=== PATIENT | male | born 1960 | race Caucasian/White ===

== ENCOUNTER 2020-07-21 07:24 | Observation (INO) ==
[2020-07-21] MEDS ORDERED: CeFAZolin Syr 2,000MG/20 ML 2,000 MG/20 ML SYRINGE IVPB ONE (08:18)
[2020-07-21] MEDS ORDERED: Ringers Solution, Lactated 1,000 ML IVC SCH (08:30)
[2020-07-21] MEDS ORDERED: Lidocaine HCL 4 ML Topical Solution (Laryng-O-Jet Kit Sterile Pak) TP ONE (09:04)
[2020-07-21] MEDS ORDERED: Dexamethasone 4 MG/ML VIAL ONE (09:10)
[2020-07-21] MEDS ORDERED: *HR* HYDROMORPHONE 2 MG/ML VIAL ONE (09:10)
[2020-07-21] MEDS ORDERED: *HR* Rocuronium Bromide 50 MG/5 ML VIAL ONE (09:10)
[2020-07-21] MEDS ORDERED: Ondansetron 4 MG/2 ML VIAL ONE (09:10)
[2020-07-21] MEDS ORDERED: *HR* FentaNYL (PF) 100 MCG/2 ML VIAL ONE (09:10)
[2020-07-21] MEDS ORDERED: Lidocaine -MPF 2% 2 ML VIAL ONE (09:10)
[2020-07-21] MEDS ORDERED: *HR* Succinylcholine 200 MG/10 ML VIAL IVP ONE (09:10)
[2020-07-21] MEDS ORDERED: Lidocaine -MPF 4% 5 ML AMPUL ONE (09:11)
[2020-07-21] MEDS ORDERED: *HR* PHENYLEPHRINE 1,000 MCG/10 ML SYRINGE IVP ONE (10:48)
[2020-07-21] MEDS ORDERED: Ketorolac 30 MG/ML VIAL ONE (11:17)
[2020-07-21] MEDS: *HR* HYDROmorphone (PF) 1 MG/ML SYRINGE IVP PRN ×2 (12:27→12:39)
[2020-07-21] MEDS ORDERED: Ondansetron 4 MG/2 ML VIAL IVP PRN (13:46)
[2020-07-21] MEDS ORDERED: 0.9 % Sodium Chloride 1,000 ML IVC SCH (13:46)
[2020-07-21 16:19] VITALS: BP 106/62
== END 2020-07-21 19:29 | disposition home or self-care (01) ==
LOC: 3ANU 07:24 → SAMDAY 07:24 → 3ANU 13:41
PROVIDERS: ADMIT Surgery; ATTEND Surgery

== ENCOUNTER 2020-11-13 16:44 | Inpatient (IN) ==
[2020-11-13] MEDS ORDERED: Ondansetron 4 MG/2 ML VIAL IVP ONE (16:50)
[2020-11-13] MEDS ORDERED: 0.9 % Sodium Chloride 1,000 ML IVC ONE ×2 (16:50→20:06)
[2020-11-13] MEDS ORDERED: Ipratropium/Albuterol Neb 3 ML IH ONE (16:51)
[2020-11-13] MEDS ORDERED: methylPREDNISolone 125 MG/2 ML VIAL IVP ONE (16:51)
[2020-11-13 17:50] LABS: Hematocrit 41.1 % (37.5-50.1); Hemoglobin 14.3 g/dL (12.9-16.9); Immature Granulocytes % 0.3 % (0-4); Immature Platelets 5.4 % (1.1-6.1); Lymphocytes # 0.5 K/mcL (0.6-4.6); Lymphocytes % 5.9 %; Mean Corpuscular HGB Conc 34.8 g/dL (31.6-35.5); Mean Corpuscular Hemoglobin 28.5 pg (28.0-33.3); Mean Corpuscular Volume 81.9 fL (83.0-100.0); Mean Platelet Volume 10.9 fL (9.4-12.4); Monocytes # 0.6 K/mcL (0.0-1.3); Monocytes % 7.3 %; Neutrophils # 6.8 K/mcL (1.6-8.9); Platelet Count 110 K/mcL (140-400); Red Blood Count 5.02 M/mcL (4.19-5.50); Red Cell Distribution Width 16.3 % (11.5-14.5); Segmented Neutrophils % 86.5 %; White Blood Count 7.8 K/mcL (4.3-11.1)
[2020-11-13 17:52] LABS: Bacteria,Urine Few per hpf (None-Few); Bilirubin,Urine Negative (Negative); Blood,Urine Trace (Negative); Clarity,Urine Turbid (Clear); Color,Urine Yellow (Yellow); Glucose,Urine (UA) Normal (Normal); Hyaline Casts,Urine Moderate per lpf (None Seen); Ketones,Urine Negative (Negative); Leukocyte Esterase,Urine Negative (Negative); Mucus,Urine Few per lpf (None-Few); Nitrite,Urine Negative (Negative); PH,Urine 5.5 pH Units (5.0-8.0); Protein,Urine 30 mg/dL (Neg-Trace); RBC,Urine 0-3 per hpf (0-3); Specific Gravity,Urine 1.018 (1.010-1.025); Squamous Epithelial Cell,Urine Few per hpf (None-Few); WBC,Urine 15-30 per hpf (0-3)
[2020-11-13 17:54] LABS: INR 1.5; Prothrombin Time 16.9 Seconds (9.4-12.1)
[2020-11-13 17:57] LABS: Activated Partial Thrombo Time 34.1 Seconds (26.0-36.0)
[2020-11-13 18:02] LABS: Amphetamine Screen,Urine Negative ng/mL (Cutoff=1000); Barbiturate Screen,Urine Negative ng/mL (Cutoff=200); Benzodiazepines Screen,Urine Positive ng/mL (Cutoff=200); Cannabinoid Screen,Urine Negative ng/mL (Cutoff = 50); Cocaine Screen,Urine Negative ng/mL (Cutoff= 300); Opiate Screen,Urine Negative ng/mL (Cutoff=300); Phencyclidine Screen,Urine Negative ng/mL (Cutoff=25)
[2020-11-13] MEDS ORDERED: *HR* LORazepam 2 MG/ML VIAL IVP ONE ×2 (18:04→18:50)
[2020-11-13] MEDS ORDERED: Lactulose Oral Soln 20 GM/30 ML UDC PO ONE (18:06)
[2020-11-13 18:13] LABS: Alanine Aminotransferase 12 Units/L (7-52); Albumin 2.9 g/dL (3.5-5.7); Albumin/Globulin Ratio 0.7 (1.1-2.2); Alkaline Phosphatase 105 Units/L (34-104); Aspartate Amino Transferase 18 Units/L (13-39); BUN/Creatinine Ratio 13 (6-26); Bilirubin,Direct 1.5 mg/dL (0.0-0.2); Bilirubin,Total 2.5 mg/dL (0.3-1.0); Blood Urea Nitrogen 74 mg/dL (8-23); Calcium 8.7 mg/dL (8.6-10.3); Carbon Dioxide 23 mEq/L (23-29); Chloride 95 mEq/L (98-107); Globulin 3.9 g/dL (2.4-3.5); Glucose 97 mg/dL (70-105); Lipase 19 Units/L (11-82); Osmolality,Calculated 300 (280-300); Sodium 134 mEq/L (136-145); Total Protein 6.8 g/dL (6.4-8.9); Troponin I < 0.03 ng/mL (< 0.04); eGFR For African Americans 12 (> 60); eGFR For Non-African Americans 10 (> 60)
[2020-11-13 20:38] LABS: Ethanol < 10 mg/dL (Less than 10)
[2020-11-13] MEDS ORDERED: Naloxone 0.4 MG/ML INJ IVP PRN (21:32)
[2020-11-13] MEDS ORDERED: 0.9 % Sodium Chloride 1,000 ML IVC SCH (21:45)
[2020-11-13] MEDS ORDERED: *HR* LORazepam 2 MG/ML VIAL IVP PRN (22:18)
[2020-11-13] MEDS ORDERED: Albumin Human 5% 12.5 GM/250 ML IV.SOLN IVPB ONE (23:23)
[2020-11-13] MEDS ORDERED: Ipratropium/Albuterol Neb 3 ML IH PRN (23:38)
[2020-11-14 08:52] LABS: Immature Granulocytes % 0.4 % (0-4); Immature Platelets 6.1 % (1.1-6.1); Lymphocytes # 0.2 K/mcL (0.6-4.6); Lymphocytes % 2.2 %; Mean Corpuscular HGB Conc 34.2 g/dL (31.6-35.5); Mean Corpuscular Hemoglobin 28.6 pg (28.0-33.3); Mean Corpuscular Volume 83.5 fL (83.0-100.0); Monocytes # 0.5 K/mcL (0.0-1.3); Monocytes % 5.7 %; Neutrophils # 7.5 K/mcL (1.6-8.9); Red Blood Count 4.55 M/mcL (4.19-5.50); Red Cell Distribution Width 16.6 % (11.5-14.5); Segmented Neutrophils % 91.7 %; White Blood Count 8.2 K/mcL (4.3-11.1)
[2020-11-14 08:54] LABS: Platelet Count 86 K/mcL (140-400)
[2020-11-14] MEDS ORDERED: cefTRIAXone 1,000 MG in Water for inj. (sterile) 10 ML IVP SCH (09:00)
[2020-11-14 09:09] LABS: Albumin 2.9 g/dL (3.5-5.7); Albumin/Globulin Ratio 0.8 (1.1-2.2); Bilirubin,Total 2.4 mg/dL (0.3-1.0); Calcium 8.5 mg/dL (8.6-10.3); Globulin 3.7 g/dL (2.4-3.5); Magnesium 1.5 mg/dL (1.6-2.6); Phosphorous 7.1 mg/dL (2.7-4.5); Potassium 4.1 mEq/L (3.5-5.1); Total Protein 6.6 g/dL (6.4-8.9)
[2020-11-14] MEDS: cefTRIAXone 2,000 MG in Water for inj. (sterile) 10 ML IVP SCH (10:30)
[2020-11-14] MEDS: Lactulose Oral Soln 20 GM/30 ML UDC PO SCH ×3 (10:30→22:25)
[2020-11-14] MEDS: Albumin 25% 25gram/100mL 25 GM/100 ML IV.SOLN IVPB SCH ×2 (10:31→17:04)
[2020-11-14] MEDS ORDERED: Lactulose 200 GM, Sodium Chloride IRRigation 700 ML RC ONE (10:51)
[2020-11-14 11:00] LABS: Platelet Estimate Decreased (Normal)
[2020-11-14] MEDS: traZODone 50 MG TABLET PO SCH (22:24)
[2020-11-15] MEDS: Albumin 25% 25gram/100mL 25 GM/100 ML IV.SOLN IVPB SCH ×2 (03:39→16:06)
[2020-11-15 05:25] LABS: Hematocrit 34.2 % (37.5-50.1); Hemoglobin 11.9 g/dL (12.9-16.9); Immature Granulocytes % 0.4 % (0-4); Immature Platelets 3.4 % (1.1-6.1); Lymphocytes # 0.4 K/mcL (0.6-4.6); Lymphocytes % 6.6 %; Mean Corpuscular HGB Conc 34.8 g/dL (31.6-35.5); Mean Corpuscular Volume 83.4 fL (83.0-100.0); Mean Platelet Volume 10.9 fL (9.4-12.4); Monocytes # 0.5 K/mcL (0.0-1.3); Monocytes % 9.9 %; Neutrophils # 4.4 K/mcL (1.6-8.9); Red Cell Distribution Width 16.6 % (11.5-14.5); Segmented Neutrophils % 83.1 %; White Blood Count 5.3 K/mcL (4.3-11.1)
[2020-11-15 05:27] LABS: Platelet Count 89 K/mcL (140-400)
[2020-11-15 05:43] LABS: Calcium 8.4 mg/dL (8.6-10.3); Magnesium 1.6 mg/dL (1.6-2.6); Phosphorous 6.4 mg/dL (2.7-4.5); Potassium 3.9 mEq/L (3.5-5.1)
[2020-11-15] MEDS: Lactulose Oral Soln 20 GM/30 ML UDC PO SCH ×2 (08:10→21:36)
[2020-11-15] MEDS: Thiamine (B-1) 100 MG TABLET PO SCH (08:10)
[2020-11-15] MEDS: cefTRIAXone 2,000 MG in Water for inj. (sterile) 10 ML IVP SCH (08:13)
[2020-11-15] MEDS ORDERED: Folic Acid 1 MG TABLET PO SCH (10:30)
[2020-11-15] MEDS ORDERED: *HR* LORazepam 2 MG/ML VIAL IVP PRN ×2 (14:20)
[2020-11-15 14:29] LABS: Sodium, Urine 20.3 mEq/L
[2020-11-15 15:06] LABS: RBC,Peritoneal Fluid < 2000 RBC/mcL
[2020-11-15 15:29] LABS: Amylase,Peritoneal Fluid < 10 Units/L (No Ref Range); Glucose,Peritoneal Fluid 91 mg/dL (No Ref Range); LDH,Peritoneal Fluid 41 Units/L (No Ref Range); Total Protein,Peritoneal Fluid < 2.0 g/dL
[2020-11-15 16:45] LABS: Appearance of Peritoneal Fl CLEAR (Clear)
[2020-11-15] MEDS: *HR* Heparin 5,000 UNIT/ML VIAL SQ SCH (18:38)
[2020-11-15] MEDS: traZODone 50 MG TABLET PO SCH (21:36)
[2020-11-16] MEDS: Albumin 25% 25gram/100mL 25 GM/100 ML IV.SOLN IVPB SCH ×3 (00:04→15:53)
[2020-11-16] MEDS: *HR* Heparin 5,000 UNIT/ML VIAL SQ SCH ×2 (05:42→17:39)
[2020-11-16 09:33] LABS: Albumin 3.2 g/dL (3.5-5.7); Albumin/Globulin Ratio 1.1 (1.1-2.2); Bilirubin,Total 1.3 mg/dL (0.3-1.0); Calcium 8.5 mg/dL (8.6-10.3); Globulin 2.9 g/dL (2.4-3.5); Potassium 3.7 mEq/L (3.5-5.1); Total Protein 6.1 g/dL (6.4-8.9)
[2020-11-16] MEDS: Thiamine (B-1) 100 MG TABLET PO SCH (09:40)
[2020-11-16] MEDS: Folic Acid 1 MG TABLET PO SCH (09:41)
[2020-11-16] MEDS: Lactulose Oral Soln 20 GM/30 ML UDC PO SCH ×2 (09:41→20:26)
[2020-11-16] MEDS: cefTRIAXone 2,000 MG in Water for inj. (sterile) 10 ML IVP SCH (09:41)
[2020-11-16] MEDS: Multivit/Ca/Min/Fe/FA 1 TAB TABLET PO SCH (09:41)
[2020-11-16] MEDS: traZODone 50 MG TABLET PO SCH (20:26)
[2020-11-17] MEDS: Albumin 25% 25gram/100mL 25 GM/100 ML IV.SOLN IVPB SCH ×3 (00:06→12:38)
[2020-11-17] MEDS ORDERED: Melatonin 3 MG TABLET PO ONE (00:12)
[2020-11-17 04:27] LABS: Hematocrit 29.9 % (37.5-50.1); Hemoglobin 10.4 g/dL (12.9-16.9)
[2020-11-17 04:46] LABS: Calcium 8.7 mg/dL (8.6-10.3); Magnesium 1.6 mg/dL (1.6-2.6); Phosphorous 4.4 mg/dL (2.7-4.5); Potassium 3.1 mEq/L (3.5-5.1)
[2020-11-17] MEDS: *HR* Heparin 5,000 UNIT/ML VIAL SQ SCH ×2 (06:08→17:52)
[2020-11-17] MEDS: Multivit/Ca/Min/Fe/FA 1 TAB TABLET PO SCH (07:44)
[2020-11-17] MEDS: Thiamine (B-1) 100 MG TABLET PO SCH (07:44)
[2020-11-17] MEDS: cefTRIAXone 2,000 MG in Water for inj. (sterile) 10 ML IVP SCH (07:44)
[2020-11-17] MEDS: Folic Acid 1 MG TABLET PO SCH (07:45)
[2020-11-17] MEDS: Lactulose Oral Soln 20 GM/30 ML UDC PO SCH ×2 (07:45→20:15)
[2020-11-17] MEDS: traZODone 50 MG TABLET PO SCH (20:15)
[2020-11-18] MEDS: *HR* Heparin 5,000 UNIT/ML VIAL SQ SCH (05:26)
[2020-11-18 05:38] LABS: Basophils % 0.3 %; Lymphocytes % 17.4 %
[2020-11-18 05:39] LABS: INR 1.4; Prothrombin Time 16.4 Seconds (9.4-12.1)
[2020-11-18 05:41] LABS: Eosinophils # 0.1 K/mcL (0.0-0.6); Eosinophils % 3.6 %; Hematocrit 31.2 % (37.5-50.1); Hemoglobin 10.8 g/dL (12.9-16.9); Immature Granulocytes % 0.6 % (0-4); Immature Platelets 2.9 % (1.1-6.1); Lymphocytes # 0.6 K/mcL (0.6-4.6); Mean Corpuscular HGB Conc 34.6 g/dL (31.6-35.5); Mean Corpuscular Hemoglobin 28.7 pg (28.0-33.3); Mean Platelet Volume 11.1 fL (9.4-12.4); Monocytes # 0.5 K/mcL (0.0-1.3); Monocytes % 15.3 %; Neutrophils # 2.1 K/mcL (1.6-8.9); Red Blood Count 3.76 M/mcL (4.19-5.50); Segmented Neutrophils % 62.8 %; White Blood Count 3.3 K/mcL (4.3-11.1)
[2020-11-18 05:46] LABS: Platelet Count 87 K/mcL (140-400)
[2020-11-18 06:02] LABS: Albumin 3.5 g/dL (3.5-5.7); Albumin/Globulin Ratio 1.5 (1.1-2.2); Bilirubin,Direct 0.5 mg/dL (0.0-0.2); Bilirubin,Indirect 0.5 mg/dL (0.0-1.0); Calcium 8.7 mg/dL (8.6-10.3); Globulin 2.3 g/dL (2.4-3.5); Magnesium 1.4 mg/dL (1.6-2.6); Potassium 3.1 mEq/L (3.5-5.1); Total Protein 5.8 g/dL (6.4-8.9)
[2020-11-18] MEDS: Lactulose Oral Soln 20 GM/30 ML UDC PO SCH (08:37)
[2020-11-18] MEDS: Thiamine (B-1) 100 MG TABLET PO SCH (08:38)
[2020-11-18] MEDS: Multivit/Ca/Min/Fe/FA 1 TAB TABLET PO SCH (08:39)
[2020-11-18] MEDS: Folic Acid 1 MG TABLET PO SCH (08:39)
[2020-11-18] MEDS ORDERED: Metoprolol XL (24 HR) Succ 25 MG TAB.ER.24H PO SCH (09:00)
[2020-11-18 15:21] VITALS: BP 121/69
== END 2020-11-18 16:55 | disposition home health service (06) | DRG 441 ==
LOC: EMEROOARM 16:44 → 3ANU 16:44 → SUATTDRO 21:00 → 3ANU 21:42 → SUATTDRO 11-15 16:18
PROVIDERS: ADMIT Family Medicine; ATTEND Pharmacist

== ENCOUNTER 2021-10-20 07:07 | Observation (INO) ==
[2021-10-20] MEDS ORDERED: Heparin 1,000 UNITS/500 mL 500 ML ONE (07:21)
[2021-10-20] MEDS ORDERED: 0.9 % Sodium Chloride 500 ML ONE (07:21)
[2021-10-20] MEDS ORDERED: Ondansetron 4 MG/2 ML VIAL IVP PRN ×3 (07:58→12:58)
[2021-10-20] MEDS ORDERED: *HR* Metoprolol 5 MG/5 ML VIAL IVP PRN (07:58)
[2021-10-20] MEDS ORDERED: *HR* OxyCODONE Immed Rel 5 MG TABLET PO PRN (07:58)
[2021-10-20] MEDS ORDERED: Albuterol 2.5 MG/3 ML NEBULIZER IH PRN (07:58)
[2021-10-20] MEDS ORDERED: *HR* FentaNYL (PF) 100 MCG/2 ML VIAL IVP PRN (07:58)
[2021-10-20] MEDS ORDERED: *HR* Norepinephrine 4 MG/4 ML VIAL IVC ONE (07:59)
[2021-10-20] MEDS ORDERED: Albumin Human 5% 0 GM/0 ML IV.SOLN ONE (08:00)
[2021-10-20] MEDS ORDERED: 0.9 % Sodium Chloride 1,000 ML ONE (09:03)
[2021-10-20] MEDS ORDERED: Isovue-300 50ML VIAL IVP ONE ×3 (09:48→10:15)
[2021-10-20] MEDS ORDERED: Naloxone 0.4 MG/ML INJ IVP PRN ×2 (10:34→12:58)
[2021-10-20] MEDS ORDERED: *HR* Water for inj. (sterile) Vial 10 ML IV ONE (11:59)
[2021-10-20] MEDS ORDERED: *HR* Rocuronium Bromide 50 MG/5 ML VIAL IVP ONE (11:59)
[2021-10-20] MEDS ORDERED: *HR* Propofol 200 MG/20 ML VIAL IVP ONE (11:59)
[2021-10-20] MEDS ORDERED: Lidocaine -MPF 2% 5 ML VIAL SQ ONE (11:59)
[2021-10-20] MEDS ORDERED: *HR* Succinylcholine 200 MG/10 ML VIAL IVP ONE (11:59)
[2021-10-20] MEDS ORDERED: *HR* Etomidate 20 MG/10 ML AMPUL IVP ONE (11:59)
[2021-10-20] MEDS ORDERED: Lidocaine -MPF 4% 5 ML AMPUL TP ONE (11:59)
[2021-10-20] MEDS ORDERED: Ondansetron 4 MG/2 ML VIAL IVP ONE (11:59)
[2021-10-20] MEDS ORDERED: Acetaminophen 325 MG TABLET PO PRN (12:58)
[2021-10-20] MEDS ORDERED: Ipratropium/Albuterol Neb 3 ML IH PRN (14:06)
[2021-10-20] MEDS ORDERED: Lactulose Oral Soln 20 GM/30 ML UDC PO SCH (15:00)
[2021-10-20] MEDS: Lactulose Oral Soln 20 GM/30 ML UDC PO SCH ×2 (15:02→20:05)
[2021-10-20 15:22] LABS: Basophils % 0.4 %; Eosinophils % 0.5 %; Hematocrit 32.9 % (37.5-50.1); Hemoglobin 10.8 g/dL (12.9-16.9); Immature Granulocytes % 0.5 % (0-4); Lymphocytes # 0.1 K/mcL (0.6-4.6); Lymphocytes % 2.5 %; Mean Corpuscular HGB Conc 32.8 g/dL (31.6-35.5); Mean Corpuscular Hemoglobin 26.7 pg (28.0-33.3); Mean Corpuscular Volume 81.2 fL (83.0-100.0); Mean Platelet Volume 9.6 fL (9.4-12.4); Monocytes # 0.2 K/mcL (0.0-1.3); Monocytes % 3.3 %; Neutrophils # 5.1 K/mcL (1.6-8.9); Platelet Count 124 K/mcL (140-400); Red Blood Count 4.05 M/mcL (4.19-5.50); Red Cell Distribution Width 16.4 % (11.5-14.5); Segmented Neutrophils % 92.8 %; White Blood Count 5.5 K/mcL (4.3-11.1)
[2021-10-20 15:28] LABS: INR 1.3; Prothrombin Time 14.5 Seconds (9.4-12.1)
[2021-10-20 15:39] LABS: Albumin 3.3 g/dL (3.5-5.7); Bilirubin,Total 0.7 mg/dL (0.3-1.0); Calcium 8.5 mg/dL (8.6-10.3); Globulin 3.4 g/dL (2.4-3.5); Magnesium 1.3 mg/dL (1.6-2.6); Potassium 5.1 mEq/L (3.5-5.1); Total Protein 6.7 g/dL (6.4-8.9)
[2021-10-20 15:42] LABS: Platelet Estimate Slight Decrease (Normal)
[2021-10-20] MEDS ORDERED: traZODone 50 MG TABLET PO SCH (21:00)
[2021-10-21 03:27] VITALS: O2SAT 98
[2021-10-21 05:44] LABS: Hematocrit 33.6 % (37.5-50.1); Hemoglobin 10.7 g/dL (12.9-16.9); Mean Corpuscular HGB Conc 31.8 g/dL (31.6-35.5); Mean Corpuscular Hemoglobin 26.2 pg (28.0-33.3); Mean Corpuscular Volume 82.4 fL (83.0-100.0); Mean Platelet Volume 9.5 fL (9.4-12.4); Platelet Count 115 K/mcL (140-400); Red Blood Count 4.08 M/mcL (4.19-5.50); Red Cell Distribution Width 16.6 % (11.5-14.5)
[2021-10-21 05:49] LABS: White Blood Count 10.6 K/mcL (4.3-11.1)
[2021-10-21 05:54] LABS: INR 1.2; Prothrombin Time 13.5 Seconds (9.4-12.1)
[2021-10-21 06:11] LABS: Albumin 3.1 g/dL (3.5-5.7); Bilirubin,Total 0.8 mg/dL (0.3-1.0); Calcium 8.5 mg/dL (8.6-10.3); Globulin 3.2 g/dL (2.4-3.5); Magnesium 1.7 mg/dL (1.6-2.6); Phosphorous 3.6 mg/dL (2.7-4.5); Total Protein 6.3 g/dL (6.4-8.9)
[2021-10-21 06:36] VITALS: TEMP 97.7
[2021-10-21] MEDS: Lactulose Oral Soln 20 GM/30 ML UDC PO SCH (08:18)
[2021-10-21] MEDS ORDERED: Nicotine 21 MG PATCH.TD24 TD SCH (09:00)
[2021-10-21 10:23] VITALS: BP 129/75; PULSE 73
== END 2021-10-21 12:00 | disposition home or self-care (01) ==
LOC: SUATTDRO → 2ANU 07:07 → INTRAD 07:07 → 2ANU 11:37
PROVIDERS: ADMIT Internal Medicine; ATTEND Internal Medicine

== ENCOUNTER 2022-03-02 06:49 | Observation (INO) ==
[2022-03-02] MEDS ORDERED: Heparin 1,000 UNITS/500 mL 500 ML ONE (07:20)
[2022-03-02] MEDS ORDERED: 0.9 % Sodium Chloride 500 ML ONE (07:20)
[2022-03-02] MEDS ORDERED: *HR* OxyCODONE Immed Rel 5 MG TABLET PO PRN (08:06)
[2022-03-02] MEDS ORDERED: Famotidine 20 MG/2 ML VIAL IVP ONE (08:06)
[2022-03-02] MEDS ORDERED: *HR* Labetalol 20 MG/4 ML SYRINGE IVP PRN (08:06)
[2022-03-02] MEDS ORDERED: *HR* HYDROmorphone (PF) 1 MG/ML SYRINGE IVP PRN (08:06)
[2022-03-02] MEDS ORDERED: Ondansetron 4 MG/2 ML VIAL IVP PRN ×2 (08:06→14:20)
[2022-03-02] MEDS ORDERED: *HR* HYDROmorphone 2 MG TABLET PO PRN (08:06)
[2022-03-02] MEDS ORDERED: 0.9 % Sodium Chloride 1,000 ML ONE ×2 (08:33→10:00)
[2022-03-02] MEDS ORDERED: *HR* FentaNYL (PF) 100 MCG/2 ML VIAL ONE (10:14)
[2022-03-02] MEDS ORDERED: *HR* Propofol 200 MG/20 ML VIAL IVP ONE (10:24)
[2022-03-02] MEDS ORDERED: *HR* Rocuronium Bromide 50 MG/5 ML VIAL IVP ONE (10:24)
[2022-03-02] MEDS ORDERED: Lidocaine -MPF 2% 5 ML VIAL SQ ONE (10:24)
[2022-03-02] MEDS ORDERED: Ondansetron 4 MG/2 ML VIAL IVP ONE (10:24)
[2022-03-02] MEDS ORDERED: *HR* Succinylcholine 200 MG/10 ML VIAL IVP ONE (10:24)
[2022-03-02] MEDS ORDERED: Isovue-300 50ML VIAL IVP ONE ×5 (11:00→11:02)
[2022-03-02] MEDS ORDERED: Mag Hydrox/Al Hydrox/Simeth 30 ML UDC PO PRN (14:20)
[2022-03-02] MEDS ORDERED: Melatonin 3 MG TABLET PO PRN (14:20)
[2022-03-02] MEDS ORDERED: Naloxone 0.4 MG/ML INJ IVP PRN (14:20)
[2022-03-02] MEDS ORDERED: MOM Conc 10 ML UD.LIQ PO PRN (14:20)
[2022-03-02] MEDS: Nicotine 21 MG PATCH.TD24 TD SCH (15:59)
[2022-03-02] MEDS ORDERED: traZODone 50 MG TABLET PO SCH (21:00)
[2022-03-03 05:14] LABS: Albumin 2.7 g/dL (3.5-5.7); Bilirubin,Total 0.8 mg/dL (0.3-1.0); Calcium 8.1 mg/dL (8.6-10.3); Globulin 2.8 g/dL (2.4-3.5); Total Protein 5.5 g/dL (6.4-8.9)
[2022-03-03 05:35] LABS: Basophils % 0.1 %; Eosinophils % 0.1 %; Hematocrit 32.7 % (37.5-50.1); Hemoglobin 10.9 g/dL (12.9-16.9); Immature Granulocytes % 0.7 % (0-4); Lymphocytes # 0.3 K/mcL (0.6-4.6); Lymphocytes % 1.9 %; Mean Corpuscular HGB Conc 33.3 g/dL (31.6-35.5); Mean Corpuscular Volume 80.9 fL (83.0-100.0); Mean Platelet Volume 9.4 fL (9.4-12.4); Monocytes # 0.9 K/mcL (0.0-1.3); Monocytes % 5.4 %; Neutrophils # 15.4 K/mcL (1.6-8.9); Platelet Count 129 K/mcL (140-400); Red Blood Count 4.04 M/mcL (4.19-5.50); Red Cell Distribution Width 14.8 % (11.5-14.5); Segmented Neutrophils % 91.8 %; White Blood Count 16.7 K/mcL (4.3-11.1)
[2022-03-03 07:14] VITALS: TEMP 98.8
[2022-03-03] MEDS ORDERED: Ipratropium 1 PUFF INHALER IH PRN (07:35)
[2022-03-03] MEDS: Nicotine 21 MG PATCH.TD24 TD SCH (08:09)
[2022-03-03] MEDS ORDERED: [UNRECOGNIZED DRUG - OTHER] IH PRN (08:13)
[2022-03-03] MEDS ORDERED: ALBUTEROL IH PRN (08:13)
[2022-03-03] MEDS ORDERED: hydrOXYzine pamoate 25 MG CAPSULE PO PRN (08:18)
[2022-03-03] MEDS ORDERED: Lactulose Oral Soln 20 GM/30 ML UDC PO SCH (09:00)
[2022-03-03 09:30] VITALS: BP 143/77; PULSE 91; O2SAT 95
== END 2022-03-03 10:25 | disposition home or self-care (01) ==
LOC: INTRAD 06:49 → 2NNU 06:49
PROVIDERS: ADMIT Internal Medicine; ATTEND Internal Medicine